=== PATIENT | male | born 1940 | race Caucasian/White ===

== ENCOUNTER 2019-01-04 15:30 | Emergency (ER) | payer MEDICARE ==
[~2019-01-04] VITALS: Ht 188 cm; Wt 90.9 kg
--- NOTE | 2019-01-04 15:48 | NUR ---
BIB EMS FROM [facility] PT WITH ADVANCED DEMENTIA ORIENTED TO SELF ONLY. PT DISLODGED HIS SUPRPUBIC CATHETER TODAY AND IS HERE FOR REPLACEMENT. SIDE RAILS UP X 2 AND CALL LIGHT W/I REACH ALTHOUGH PT IS PROBABLY NOT COGNITIVE ENOUGH TO USE. THIS RN WILL MONITOR PT CLOSELY. AT THIS TIME HE IS MAKING NO ATTEMPTS TO GET OOB.
[2019-01-04] MEDS ORDERED: LIDOCAINE-MPF 1%, 5ML ONE (17:27)
--- NOTE | 2019-01-04 17:28 | NUR ---
PT TO IR WITH [facility] FOR PLACEMENT OF SUPRAPUBIC CATH.
[2019-01-04 18:28] VITALS: BP 149/87
--- NOTE | 2019-01-04 18:36 | NUR ---
PT RTD FROM IR, SUPRAPUBIC CATH PLACED AND IS DRAINING W/O DIFFICULTY. SHEET PLACED OVER HIS LAP TO DISTRACT HIM FROM PULLING THE NEW CATHETER OUT.
--- NOTE | 2019-01-04 19:06 | NUR ---
PT D/C TO RTN TO [facility]. RPT GIVEN TO MONISHA OCONNOR RECIEVING RN AT [facility].
== END 2019-01-04 19:09 | disposition home or self-care (01) ==
LOC: ED 19:03
DX: T83.028A Displacement of other urinary catheter, initial encounter (principal); Z86.718 Personal history of other venous thrombosis and embolism; F03.90 Unspecified dementia, unspecified severity, without behavioral disturbance, psychotic disturbance, mood disturbance, and anxiety
CPT/HCPCS: 51703; 75989; 99284; C1725; C1769